=== PATIENT | male | born 1960 | race Caucasian/White ===

== ENCOUNTER 2024-10-13 06:11 | Emergency (ER) | payer BC ==
[~2024-10-13] VITALS: Ht 165.1 cm; Wt 69.9 kg
[2024-10-13] MEDS ORDERED: LIDOCAINE 2% JEL UROJET 10 ML MM ONE (06:36)
[2024-10-13] MEDS: LIDOCAINE 2% JEL UROJET 10 ML MM ONE (07:09)
[2024-10-13 07:51] LABS: APPEARANCE,URINE CLEAR (CLEAR); BLOOD, URINE TRACE-INTA Ery/uL (NEGATIVE); LEUKOCYTE ESTERASE ,URINE NEGATIVE (NEGATIVE); NITRITE, URINE POSITIVE (NEGATIVE); UGLUCOSE 1+ mg/dL (NEGATIVE)
[2024-10-13 08:01] LABS: ADD URINE CULTURE YES; SQUAMOUS EPITHELIAL CELL,UR 0-2 /HPF (None Seen)
[2024-10-13] MEDS ORDERED: CEPH-570 PO (08:15)
[2024-10-13] MEDS ORDERED: TAMS-12 PO (08:15)
[2024-10-13 08:52] VITALS: BP 130/92; TEMP 98.4; O2SAT 100
== END 2024-10-13 08:52 | disposition home or self-care (01) ==
LOC: ER 06:16
DX: N39.0 Urinary tract infection, site not specified (principal); R33.8 Other retention of urine; N40.1 Benign prostatic hyperplasia with lower urinary tract symptoms; I10 Essential (primary) hypertension; R31.9 Hematuria, unspecified; Z60.2 Problems related to living alone
CPT/HCPCS: 99283; 87086; 81001; J3490

== ENCOUNTER 2024-10-19 10:47 | Emergency (ER) | payer BC ==
[~2024-10-19] VITALS: Ht 157.5 cm; Wt 63.5 kg
[~2024-10-19 10:47] MED LIST: CEPH-570 PO; TAMS-12 PO
[2024-10-19 11:42] VITALS: BP 133/85; TEMP 98; O2SAT 98
== END 2024-10-19 12:35 | disposition home or self-care (01) ==
LOC: ER 10:57
DX: R33.9 Retention of urine, unspecified (principal); I10 Essential (primary) hypertension; Z87.440 Personal history of urinary (tract) infections; Z46.6 Encounter for fitting and adjustment of urinary device; Z60.2 Problems related to living alone; Z79.899 Other long term (current) drug therapy